=== PATIENT | female | born 1955 | race Caucasian/White ===

== ENCOUNTER → 2019-02-22 | Day surgery (SDC) | payer BC ==
[2019-02-16 15:51] LABS: BASOPHILS % 0.4 % (0.0-1.0); EOSINOPHILS # (AUTO) 0.1 (0.0-0.4); HEMATOCRIT 43.1 % (34.2-44.1); HEMOGLOBIN 14.3 g/dL (12.0-16.0); LYMPHOCYTES # (AUTO) 3.2 (1.0-3.2); MEAN CORPUSCULAR HGB CONC 33.2 g/dL (31-35); MEAN CORPUSCULAR VOLUME 93.3 fL (81-99); MONOCYTES # (AUTO) 0.5 (0.2-0.8); MONOCYTES % 5.5 % (4.4-11.3); NEUTROPHILS # (AUTO) 4.6 (2.1-6.9); NEUTROPHILS % 54.7 % (38.7-80.0); PLATELET COUNT 270 x10e3/uL (140-360); RED BLOOD COUNT 4.62 x10e6/uL (3.6-5.1)
[~2019-02-22] MED LIST: ALDACTAZIDE 501 EACH PO; ALPRAZOLAM0.25 M1 PO; AMITRIPTYLINE H10 MG PO; BALANCED SALT SOLN (OPTH) 15 ML BTL IO ONE; BIOTIN PO; BUPIVACAINE HC 0.75% PF 10ML VIAL INJ ONE; CHLORDIAZEPOXI1 EACH PO; CHONDR SU A NA/HYALUR SOD 1 EACH KIT IO ONE; CITRACAL PO; CYCLOPENTOLATE HCL 2% OPTH SOLN 2 ML BTL OP ONE; DEXAMETHASONE SOD PHOS INJ 4 MG/ML VIAL ONE; DIOVAN40 MG; DIOVAN80 MG PO; EPHEDRINE SULFATE INJ 50 MG/10 ML SYR ONE; EPINEPHRINE HCL 1:1000 1ML 1 MG/ML AMP ONE; FENTANYL CITRATE/PF 100MCG/2 ML INJ ONE; FUROSEMIDE40 MG PO; GABAPENTIN PO; GABAPENTIN300 MG PO; GATIFLOXACIN(OPTH) 5 ML LIQD ONE; KLOR-CON M2020 MEQ PO; LIDOCAINE 2% /EPINEPHRINE 20 ML SDV INJ ONE; LIDOCAINE HCL-PF 4% 40 MG/1 ML 5ML AMP ONE; MIDAZOLAM HCL 2 MG/2 ML VIAL ONE; NASAL SPRAY30 M1; NASONEX17 GM; OMEGA 3 FISH OIL PO; ONDANSETRON HCL INJ 2MG/ML 2ML 2 MG/ML VIAL ONE; PHENYLEPHRINE HCL 2 ML DROPS ONE; PILOCARPINE HCL(OPTH) 15 ML LIQD ONE; POVIDONE IODINE 5% (OPTH) 30 ML BTL ONE; PROPOFOL IV EMULSION 10 MG/ML 20 ML VIAL ONE; TOBRAMYCIN/DEXAMETHASONE(OPTH) 3.5 GM TUBE ONE; VITAMIN B COMP1 EACH PO; VITAMIN C500 MG PO; VITAMIN D400 UNIT PO; WARFARIN SODIUM1 MG PO; WARFARIN SODIUM6 MG PO; ZINC PO; ZYRTEC10 M3 PO; [UNRECOGNIZED DRUG - OTHER] PO
[2019-02-22 06:08] LABS: INR 1.05; PARTIAL THROMBOPLASTIN TIME 29.6 seconds (23.8-35.5); PROTHROMBIN TIME 14.2 seconds (11.9-14.5)
[2019-02-22 09:05] VITALS: BP 98/61
== END | disposition home or self-care (01) ==
LOC: OR 05:04
PROVIDERS: ATTEND Ophthalmology
DX: H25.11 Age-related nuclear cataract, right eye (principal); I10 Essential (primary) hypertension; E66.01 Morbid (severe) obesity due to excess calories; M10.9 Gout, unspecified; M54.30 Sciatica, unspecified side; K57.90 Diverticulosis of intestine, part unspecified, without perforation or abscess without bleeding; F41.9 Anxiety disorder, unspecified; Z88.0 Allergy status to penicillin; Z91.041 Radiographic dye allergy status; Z01.810 Encounter for preprocedural cardiovascular examination; Z01.812 Encounter for preprocedural laboratory examination; Z79.01 Long term (current) use of anticoagulants; Z86.711 Personal history of pulmonary embolism; Z87.891 Personal history of nicotine dependence
CPT/HCPCS: 36415 ×2; 66982; 85025; 85610; 85730; 93005; J0171; J1100; J2001; J2250; J2405; J2704; J3010; V2632